=== PATIENT | male | born 1965 | race African-American/Black ===

== ENCOUNTER 2017-10-06 13:47 | Emergency (ER) | payer MEDICARE, MEDICAID ==
[~2017-10-06] VITALS: Ht 182.9 cm; Wt 86.2 kg
[~2017-10-06 13:47] MED LIST: IBUPROFEN600 MG ORAL; TRAMADOL HCL50 MG ORAL
[2017-10-06 13:56] VITALS: BP 141/89
--- NOTE | 2017-10-06 14:10 | Emergency Room Report ---
History of Present Illness General Chief Complaint: Pain Source: Patient, Medical Record Present Illness HPI 51 yo male patient presents to ER complaining of left knee pain since Sunday. Denies recent injury or trauma. Reports pain and swelling of knee. Denies calf pain. Denies foot pain. Denies hx of gout. Reports walks with cane secondary to back pain. Reports able to walk. Denies fever, chest pain, SOB. Allergies: Uncoded Allergies: FLEXERIL (Allergy, Mild, 03/09/16) Patient History Past Medical History: see triage record Reviewed Nursing Documentation: PMH: Agreed; PSxH: Agreed Nursing Documentation-PMH Past Medical History: No History, Except For Hx Cardiac Problems: No - back surgery (3) Hx Neurological Problems: No - diverticulitis sx Review of Systems All Other Systems: negative except mentioned in HPI Physical Exam Vital Signs Date Time Temp Pulse Resp B/P (MAP) Pulse Ox O2 Delivery O2 Flow Rate FiO2 10/06/17 13:50 98.3 77 18 141/89 97 Room Air 98.2 Sp02 EP Interpretation: reviewed, normal General Appearance: well appearing, no apparent distress, alert, GCS 15, non- toxic Head: normocephalic, atraumatic Eyes: bilateral eye normal inspection, bilateral eye PERRL ENT: hearing grossly normal, normal pharynx, no angioedema, normal voice, uvula midline, moist mucus membranes Respiratory: lungs clear, normal breath sounds, no rhonchi, no respiratory distress, no accessory muscle use, no wheezing, speaking full sentences Cardiovascular #1: regular rate, rhythm, no edema Musculoskeletal: back normal, digits/nails normal, gait/station normal, no calf tenderness, decreased range of motion - secondary to pain, swelling, other - no warmth to touch, no erythema, NVI, no laxity with varus and valgus stress, negative Tracy, no bony deformity, tender - left knee Neurologic: alert, oriented x3, responsive, motor strength/tone normal, sensory intact Skin: no rash, other - no warmth to touch, no erythema Lymphatic: no adenopathy Medical Decision Making PA Attestation Dr. Winters is my supervising Physician whom patient management has been discussed with. Diagnostic Impression: Primary Impression: Knee effusion, left ER Course Pt. presents to the ED c/o left knee pain. Ddx considered but are not limited to fracture, sprain, strain, contusion, dislocation, effusion. No erythema compared to other unaffected knee, no warmth to touch, no fever, nontoxic appearing, low suspicion for septic joint. Vital signs: are WNL, pt. is afebrile Ordered X-ray and pain medication. 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 Reviewed with Dr. Winters, agrees with findings. Results discussed with patient. Followup with primary care provider to discuss need for knee drainage and further imaging at that time. Does not require drainage in ER at this time. Pain Medication provided in ED. YUSUF Wrap was applied to the left knee was checked afterwards by me showing good alignment and support with distal neurovascular functioning intact. Declined knee immobilizer. Wants to be able to get home. Crutches declined, has cane. Patient able to ambulate independently. Patient instructed on RICE method: rest, ice, compression, elevation. Patient instructed to WBAT. Patient will call for ride home from friend. DISCHARGE: -Rx provided for Tylenol for pain symptoms. At this time pt. is stable for d/c to home. Patient is resting comfortably, in no acute distress, nontoxic appearing, talking without difficulty. Will provide printed patient care instructions, and any necessary prescriptions. Patient instructed to follow with primary care provider in 2-3days and to request further orthopedic follow-up. Care plan and follow up instructions have been discussed with the patient prior to discharge. Take medications as directed. Patient questions asked and answered. Patient reports understanding and agreement to treatment plan. ER precautions given, patient instructed to return to ER immediately for any new or worsening of symptoms. Other X-Ray Diagnostic Results Other X-Ray Diagnostic Results : X-Ray ordered: left knee # of Views/Limited Vs Complete: 3 View Indication: Pain EP Interpretation: Yes PA Xray: Interpretation reviewed, by supervising MD, and agrees with findings. Interpretation: no dislocation, no fractures, other - mild effusion, Leah- Schlatter disease Impression: Other - effusion PA Scribe Text Marcelino Enriquez PA-C Last Vital Signs Date Time Temp Pulse Resp B/P (MAP) Pulse Ox O2 Delivery O2 Flow Rate FiO2 10/06/17 13:56 98.2 77 18 141/89 97 Room Air 98.2 Disposition: HOME, SELF-CARE Condition: Stable Scripts Acetaminophen* (TYLENOL EXTRA STRENGTH*) 500 Mg Tablet 500 MG ORAL Q8H PRN for Prn Headache/Temp > 101, #30 TAB 0 Refills Prov: Lionel Enriquez 10/06/17 Patient Instructions: Knee Effusion, [id number], Knee Pain, [id number] Additional Instructions: Patient instructed to follow up with primary care provider in 2-3 days and discuss further referral to orthopedics. Discuss need for knee drainage at that time. Patient instructed on RICE method: rest, ice, compression, elevation. Patient instructed to WBAT. Take medications as directed. Patient questions asked and answered. ER precautions given, patient instructed to return to ER immediately for any new or worsening of symptoms. Lionel Enriquez Oct 06, 2017 14:10
[2017-10-06] MEDS ORDERED: Acetaminophen 500mg (ES) tab ORAL ONE (14:15)
[2017-10-06] MEDS ORDERED: TYLENOL EXTRA500 MG ORAL (14:45)
[2017-10-06 14:58] VITALS: BP 141/89
--- NOTE | 2017-10-07 11:47 | Diagnostic Imaging Report ---
Indication: Pain 3 views of the left knee were obtained. Findings: Moderate degree of soft tissue swelling in the area of the prepatellar subcutaneous fat noted. There is ill-definition of the patellar tendon which may be thickened or injury. There is soft tissue fullness in Hoffa's fat pad. There is also suspicion of a joint effusion. Some fragmentation of the tibial tuberosity noted. This may be normal and nonacute finding. There is mild narrowing of the joint space. Vascular calcification noted within the femoral artery and popliteal artery. IMPRESSION: Soft tissue fullness and swelling in the anterior part of the knee with evidence of a joint effusion as described above. Patellar tendon injury is one consideration. No definite acute fracture. Consider evaluation with MRI.
== END 2017-10-06 15:14 | disposition home or self-care (01) ==
LOC: EMR 14:30
DX: M25.462 Effusion, left knee (principal); M25.562 Pain in left knee
CPT/HCPCS: 99284

== ENCOUNTER 2018-12-18 22:08 | Emergency (ER) | payer MEDICARE, MEDICAID ==
[~2018-12-18] VITALS: Ht 182.9 cm; Wt 97.5 kg
[~2018-12-18 22:08] MED LIST changes: +TYLENOL EXTRA500 MG ORAL
[2018-12-18] MEDS ORDERED: XANAX0.25 MG ORAL (22:15)
[2018-12-18 22:28] VITALS: BP 139/85
[2018-12-18] MEDS ORDERED: IBUPROFEN600 MG ORAL (23:39)
[2018-12-18] MEDS ORDERED: TRAMADOL HCL50 MG ORAL (23:39)
--- NOTE | 2018-12-19 00:38 | Emergency Room Report ---
History of Present Illness General Chief Complaint: Pain Source: Patient Present Illness HPI 53-year-old male presents ED for evaluation. Complaining of left ankle pain and swelling. Started about 1 week ago. States that he felt a pop in his knee while walking and since then he felt pain in his left ankle. States his ankle is now swollen. Throbbing, 7 out of 10, nonradiating. Is able to bear weight. Denies any calf pain or knee pain at this time. No other aggravating or relieving factors. Denies any other associated symptoms Allergies: Coded Allergies: CYCLOBENZAPRINE (Verified Allergy, Unknown, 12/18/18) Uncoded Allergies: FLEXERIL (Allergy, Mild, 03/09/16) Patient History Past Medical History: none Past Surgical History: none Pertinent Family History: none Social History: Denies: smoking, alcohol use, drug use Immunizations: UTD Reviewed Nursing Documentation: PMH: Agreed; PSxH: Agreed Nursing Documentation-PMH Past Medical History: No History, Except For Hx Cardiac Problems: No - back surgery (3) Hx Neurological Problems: No - diverticulitis sx Review of Systems All Other Systems: negative except mentioned in HPI Physical Exam Vital Signs Date Time Temp Pulse Resp B/P (MAP) Pulse Ox O2 Delivery O2 Flow Rate FiO2 12/18/18 22:11 98.2 80 14 145/88 (107) 96 Room Air Sp02 EP Interpretation: reviewed, normal General Appearance: no apparent distress, alert, GCS 15, non-toxic Head: normocephalic Eyes: bilateral eye normal inspection, bilateral eye PERRL ENT: normal ENT inspection Neck: normal inspection Respiratory: normal inspection Cardiovascular #1: normal inspection Gastrointestinal: normal inspection Rectal: deferred Genitourinary: no CVA tenderness Musculoskeletal: swelling - L ankle Neurologic: alert, oriented x3, responsive, motor strength/tone normal, sensory intact, speech normal Psychiatric: normal inspection Skin: normal inspection Lymphatic: normal inspection Procedures Splinting Splinting : Consent: Verbal Pre-Made Type: aircast Pre-Proc Neuro Vasc Exam: normal Post-Proc Neuro Vasc Exam: normal Patient Tolerated: Well Complications: None Medical Decision Making Diagnostic Impression: Primary Impression: Ankle sprain Qualified Codes: S93.402A - Sprain of unspecified ligament of left ankle, initial encounter ER Course Hospital Course 53-year-old M presents to ED complaining of L ankle pain/swelling Differential diagnoses include: Fracture, dislocation, sprain, contusion Clinical course Patient placed on stretcher. After initial history and physical, I ordered xrays L ankle. patient declined pain meds Xrays prelim read shows no acute fracture/dislocation. there is noted soft tissue swelling. Aircast. Given crutches. Discussed findings with patient. Recommend modified activity. Ice, elevation. Safe for discharge for close outpatient follow-up. Will provide Ortho referrals Diagnosis - ankle sprain Stable and discharged to home with prescription for motrin, tramadol. apply ice , keep elevated. weight bear as tolerated. Followup with PMD/ortho. Return to ED if symptoms recur or worsen Other X-Ray Diagnostic Results Other X-Ray Diagnostic Results : X-Ray ordered: L ankle # of Views/Limited Vs Complete: 3 View Indication: Pain EP Interpretation: Yes Interpretation: no dislocation, no fractures Impression: No acute disease Electronically Signed by: Electronically signed by Jude Pratt MD Last Vital Signs Date Time Temp Pulse Resp B/P (MAP) Pulse Ox O2 Delivery O2 Flow Rate FiO2 12/18/18 23:51 Room Air 12/18/18 22:28 98.2 72 21 139/85 97 Status: improved Disposition: HOME, SELF-CARE Condition: Stable Scripts Tramadol Hcl* (ULTRAM*) 50 Mg Tablet 50 MG ORAL Q6H PRN for For Pain, #12 TAB 0 Refills Prov: Jude Pratt MD 12/18/18 Ibuprofen* (MOTRIN*) 600 Mg Tablet 600 MG ORAL Q8H PRN for For Pain, #30 TAB 0 Refills Prov: Jude Pratt MD 12/18/18 Referrals: NON PHYSICIAN (PCP) [facility] Open 24 hour /7 days a week by Appointment Only [address] [facility] [address] Patient Instructions: Ankle Sprain, [id number] Jude Pratt MD Dec 19, 2018 00:38
--- NOTE | 2018-12-19 14:57 | Diagnostic Imaging Report ---
Indication: Ankle pain Technique: 3 views of the left ankle Comparison: none Findings: There is slight medial lateral malleolar soft tissue swelling. No acute fractures. No dislocations. Joint spaces are preserved. There are mild degenerative changes of the dorsal midfoot. Impression: Mild soft tissue swelling. No definite acute bony trauma
== END 2018-12-18 23:55 | disposition home or self-care (01) ==
LOC: EMR 22:35
DX: S93.402A Sprain of unspecified ligament of left ankle, initial encounter (principal); Z88.8 Allergy status to other drugs, medicaments and biological substances; X58.XXXA Exposure to other specified factors, initial encounter; Y93.01 Activity, walking, marching and hiking; Y92.9 Unspecified place or not applicable
CPT/HCPCS: 99283